=== PATIENT | female | born 2000 | race African-American/Black ===

== ENCOUNTER 2020-05-08 01:44 | Inpatient (IN) | payer OTHER ==
[2020-05-08] VITALS (39 sets, daily range): BP systolic 93–155; BP diastolic 51–82; PULSE 71–146; TEMP 97.8–98.9
[~2020-05-08] VITALS: Ht 162.6 cm; Wt 64.4 kg
--- NOTE | 2020-05-08 02:46 | NUR ---
0241- DR. ALBERT AT BEDSIDE TO PERFORM BEDSIDE US DUE TO POSSIBLE SPINA BIFIDA. EFM X2 OFF AT THIS TIME.
[2020-05-08 03:36] LABS: HEMOGLOBIN 11.5 g/dl (12.0-15.0); MEAN CELL VOLUME 85 fl (80.0-95.0); MEAN CORPUSCULAR HEMOGLOBIN 28 pg (26.0-32.0); MEAN CORPUSCULAR HGB CONC 33 g/dl (33.0-37.0); PLATELET COUNT 246 K/mm3 (130-400); RED BLOOD COUNT 4.15 M/mm3 (4.10-5.30); REDCELL DISTRIBUTION WIDTH-CV 13.5 % (11.5-14.5)
[2020-05-08 03:41] LABS: HEMATOCRIT 35.2 % (35.0-45.0)
[2020-05-08 03:59] LABS: EOSINOPHIL 2 % (0-4); LYMPHOCYTE 14 % (20.0-51.0); NEUTROPHILS 79 % (42.0-75.2)
[2020-05-08 04:00] LABS: ANISOCYTOSIS 1+; HYPOCHROMIA 1+; PLATELET ESTIMATE NORMAL (NORMAL)
[2020-05-08] MEDS ORDERED: VITAMIN B-625 MG PO (05:19)
[2020-05-08] MEDS ORDERED: UNISOM25 MG PO (05:20)
[2020-05-08] MEDS ORDERED: PRENATAL PO (05:20)
--- NOTE | 2020-05-08 06:20 | NUR ---
This RN receives bedside report from Salazar LICONA. Patient resting on left side and has no needs at this time. Orders received to start pitocin. 0624: Pitocin started per protocol at 2mU/hr. 0810: Dr. Mares at bedside to assess patient and FHR strip. SVE per physician /0 and AROM at this time with clear fluid noted. 0830: Patient up on birthing ball. Difficulty tracing FHR at times due to maternal position, this RN adjusting monitor. 0950: Patient off monitor to void. 1000: Patient back in bed resting and SVE 90/0. Patient left lateral with right leg resting in stirrup. 1020: Patient right lateral with left leg resting in stirrup. Dr. Mares called and notified and on the way for delivery. Patient states she is having a lot of pressure. SVE /90/0. Patient requests epidural and Shira SPINDLE TESTER notified. 1030: Patient states she feels alot of pressure. SVE-9-10/100/+2
--- NOTE | 2020-05-08 10:38 | NUR ---
at bedside and patient prepped for vaginal delivery and pushing instructions discussed. 1041: Patient begins to push with contractions. 1049: Spontaneous vaginal delivery of viable female- head followed by body. bulb syringed and to patients Eliezer cedeno RN assumes care of . Cord clamped by physician and cut by FOB. 1052: Spontaneous delivery of placenta and pitocin started at 333mU/hr per protocol. Fundal massage done/firm/bleeding WNL. Dr. Mares repairs labial laceration. Pericare done, patient repositioned, ice pack to perineum. Plan of care discussed and questions answered.
--- NOTE | 2020-05-08 18:30 | NUR ---
Report recieved. Asleep at this time with lights off and infant at bedside.
[2020-05-09 00:20] VITALS: BP 104/57; PULSE 78; TEMP 98
[2020-05-09 04:15] VITALS: BP 120/70; PULSE 69; TEMP 98
[2020-05-09 08:05] VITALS: BP 109/59; PULSE 90; TEMP 98.1
--- NOTE | 2020-05-09 09:23 | NUR ---
Initial visit attempt; Family resting, Tumbling Instructor left card of congratulations and information regarding the availability of spiritual care at [place]/ [address].
[2020-05-09] MEDS ORDERED: IBU600 MG PO (13:15)
== END 2020-05-09 15:40 | disposition home or self-care (01) | DRG 807 ==
LOC: LDRO 01:44 → LDR 02:57 → OB 02:57
PROVIDERS: ADMIT Obstetrics & Gynecology
PROC: 10E0XZZ Delivery of Products of Conception, External Approach (ICD-10-PCS; principal; 2020-05-08)
PROC: 0UQMXZZ Repair Vulva, External Approach (ICD-10-PCS; 2020-05-08)
DX: O70.0 First degree perineal laceration during delivery (principal); Z37.0 Single live birth; Z3A.37 37 weeks gestation of pregnancy
CPT/HCPCS: J2540; J2590; J7120